=== PATIENT | female | born 1995 | race African-American/Black ===

== ENCOUNTER 2017-05-26 16:03 | Inpatient (IN) | payer OTHER ==
[~2017-05-26] VITALS: Ht 162.6 cm; Wt 56.7 kg
--- NOTE | ~2017-05-26 | PN ---
Unit #: [id number] #: [id number] Patient: ANITA SMILEY [id number] [facility] [address] [place] [address] [id number] MR#: [id number] NAME: ANITA SMILEY ROOM: P122 Age: 22 Sex: F Admission Date: 05/26/2017 : 1995 Attending Physician: Elodia Mcelroy M.D. Admitting Physician: Elodia Mcelroy M.D. Primary Care Physician: Generic Doctor Not In System [facility] PROGRESS NOTES DATE 05/29/2017 DISCUSSION Ms. Smiley is a 22-year-old female who was seen today and chart was reviewed and case was discussed with the staff. She reports persistent depression and anxiety. Meanwhile, she also has been complaining of poor sleep. She has been taking medications and tolerating them fairly well and now she states that she does not want to be on Abilify Maintena which was discussed and that she would rather like to be switched to Seroquel from Abilify. MENTAL STATUS EXAMINATION Young female who was casually dressed with fair personal hygiene and appears to be in no acute distress or discomfort. She was awake and alert with intact orientation. Her mood was anxious with congruent affect. She denies any suicidal or homicidal ideations and also denies any auditory or visual hallucinations. Her insight and judgement remains slightly impaired. TREATMENT PLAN 1. Will continue current medications and treatment protocol. Will monitor her response to medications and make further adjustments as needed. 2. Will continue to follow up. Dictated by... Zainab Romero/tyrese TD: 05/29/2017 16:25 JOB #: [id number] Unit #: [id number] #: [id number] Patient: ANITA SMILEY [facility] PROGRESS NOTES Page 1 of 1 X Elodia Mcelroy MD PROGRESS NOTE
--- NOTE | ~2017-05-26 | DS ---
Unit #: [id number] #: [id number] Patient: [facility] [id number] [facility] [address] [place] [address] [id number] I MR#: [id number] NAME: ANITA SIMMONS ROOM: P176 Age: 22 Sex: F Admission Date: 05/26/2017 : 1995 Discharge Date: 06/01/2017 Attending Physician: Elodia Mcelroy M.D. Primary Care Physician: Generic Doctor Not In System DISCHARGE SUMMARY IDENTIFICATION DATA Mrs. Simmons is a 22-year-old single female who is a resident of [place], [place], and was self-referred to the hospital on a voluntary basis. DISCHARGE DIAGNOSES PSYCHIATRIC: Bipolar disorder, most recent episode, depressed, recurrent, moderate, without psychotic features. Cocaine dependence, moderate. Benzodiazepine dependence, moderate. MEDICAL: History of seizure disorder. STRESSORS: Moderate psychosocial stressors. HISTORY OF PRESENT ILLNESS Same as in initial psychiatric evaluation. PAST PSYCHIATRIC HISTORY Same as in initial psychiatric evaluation. PAST MEDICAL HISTORY Same as in initial psychiatric evaluation. HOSPITAL COURSE The patient was admitted to the adult chemical dependence and psychiatric unit at [facility] baltazar Akhtar and was oriented to the hospital environment. Routine p.r.n. medications were initiated, and she was started back on home medications and initially was started on Abilify with a plan to start her on a long-acting injectable Abilify. However, she stated that she does not want to take Abilify and that would like to go home on Seroquel which was initiated, and then she decided that she does not want to be on Depakote either and was seen to be exhibiting rather manipulative behavior. However, no agitation or aggression was noted (1) __ she was taking Seroquel and tolerating it fairly well and was able to show a decent therapeutic response and improvement in depression and anxiety, and as such it was decided that she will be discharged home. We will continue treatment on outpatient basis. DISCHARGE MEDICATIONS 1. Seroquel 100 mg at bedtime for bipolar. 2. BuSpar 10 mg 3 times a day for anxiety. CONDITION AT DISCHARGE Stable. Unit #: [id number] #: [id number] Patient: ANITA SIMMONS PROGNOSIS Fair. Dictated by... Zainab Romero/chandan TD: 06/02/2017 10:20 JOB #: [id number] DISCHARGE SUMMARY Page 1 of 1 X Elodia Mcelroy MD DISCHARGE SUMMARY
--- NOTE | ~2017-05-26 | HP ---
Unit #: [id number] #: [id number] Patient: ANITA SMILEY [id number] [place] [address] [id number] I MR#: [id number] NAME: ANITA SMILEY ROOM: P122 Age: 22 Sex: F Admission Date: 05/26/2017 : 1995 Attending Physician: Elodia Mcelroy M.D. Admitting Physician: Elodia Mcelroy M.D. Primary Care Physician: Maribel Doctor Not In System HISTORY AND PHYSICAL HISTORY OF PRESENT ILLNESS Anita is a 22 year old admitted to [address] [place] [address] with depression and verbalizing wanting to hurt herself. She has had other admissions to this facility for the same. PAST MEDICAL HISTORY History of illicit substance abuse to include benzodiazepines and cocaine. PAST SURGICAL HISTORY Nothing reported. ALLERGIES No known drug allergies. SOCIAL HISTORY She does not smoke. Drinks alcohol rarely. Admits to abusing benzodiazepines and using cocaine on occasion. FAMILY HISTORY Medically noncontributory. REVIEW OF SYSTEMS CONSTITUTIONAL: No fever or chills. HEENT: Denies any sore throat, ear pain or runny nose. CARDIOVASCULAR: Denies chest pain, irregular heart rhythm or palpitations. CHEST: Denies shortness of breath or cough. No hemoptysis. GASTROINTESTINAL: Denies nausea, vomiting, diarrhea or chronic constipation. ENDOCRINE: Denies history of increased thirst or urination. No recent significant weight loss or gain. GENITOURINARY: Denies dysuria, frequency, or hematuria. SKIN: Denies any rashes. HEMATOLOGIC: Denies history of increased bleeding or bruising. MUSCULOSKELETAL: Denies any hot, swollen joints. No generalized muscle pain. NEUROLOGIC: Denies problems with vision or speech. No frequent, severe headaches. No numbness, tingling or weakness in any extremities. Denies loss of bladder or bowel control. CURRENT MEDICATIONS 1. Abilify 400 mg IM q. 30 days. 2. BuSpar 10 mg t.i.d. 3. Depakote 500 mg b.i.d. Unit #: [id number] #: [id number] Patient: ANITA SMILEY 4. Abilify p.o. 5 mg b.i.d. 5. Vistaril p.r.n. 6. Desyrel p.r.n. 7. Milk of Magnesia p.r.n. 8. Maalox p.r.n. 9. Tylenol p.r.n. PHYSICAL EXAMINATION GENERAL: Alert, well-nourished, in no apparent distress. VITAL SIGNS: Blood pressure 120/80, heart rate 80, respirations 16, temperature 98.6. WEIGHT: 125. HEIGHT: 5 feet 4 inches. SKIN: Warm and dry without rash or lesion. HEENT: Normocephalic. TMs not viewed. Oral and nasal passages clear. Conjunctivae clear. PERRLA. EOMs intact. NECK: Supple without lymphadenopathy or thyromegaly. HEART: Regular rate and rhythm without murmur. LUNGS: Clear. ABDOMEN: Soft, nontender. : Not done. EXTREMITIES: No evidence of cyanosis, clubbing or edema. Moves all without focal deficit. NEUROLOGICAL: Unable to complete extended exam. She does move all extremities without focal deficit. Hand director it is equal and gait is normal. IMPRESSION Psychiatric admission. RECOMMENDATIONS PSYCHIATRIC: Per psychiatrist. MEDICAL: See no contraindication to participate in facility's activities. MEDICAL PROGNOSIS Good. MEDICAL CONDITION Stable. Dictated by... Kristine Morelos P.A.-C. for Zainab Mcpherson/tyrese TD: 05/27/2017 17:56 JOB #: [id number] Unit #: [id number] #: [id number] Patient: ANITA SMILEY HISTORY AND PHYSICAL Page 1 of 1 X Kristine Morelos X HISTORY AND PHYSICAL
--- NOTE | ~2017-05-26 | PN ---
Unit #: [id number] #: [id number] Patient: ANITA SMILEY [id number] [facility] [address] [place] [address] [id number] I MR#: [id number] NAME: ANITA SMILEY ROOM: P122 Age: 22 Sex: F Admission Date: 05/26/2017 : 1995 Attending Physician: Elodia Mcelroy M.D. Admitting Physician: Elodia Mcelroy M.D. Primary Care Physician: Generic Doctor Not In System [facility] PROGRESS NOTES DATE OF SERVICE 05/28/2017 DISCUSSION Ms. Smiley is a 22-year-old female who was seen today. Chart was reviewed and case was discussed with the staff. She has been anxious, withdrawn, and rather seclusive to herself. Meanwhile, she has been cooperative with treatment recommendations and has been taking the medications and tolerating them fairly well with no reported side effects. MENTAL STATUS EXAMINATION Young female who is casually dressed with fair personal hygiene, appears to be in no acute distress or discomfort. The patient was awake and alert on interaction with intact orientation. Her mood is anxious with congruent affect. Her speech is slow and goal-directed. She denies any suicidal or homicidal ideation and also denies any auditory or visual hallucinations. Her insight and judgment remain slightly impaired. TREATMENT PLAN 1. We will continue her on her current medications and treatment protocol. We will monitor her response to the medications and make further adjustments as needed. 2. We will continue to follow up. Dictated by... Zainab Romero/chandan TD: 05/28/2017 11:32 JOB #: [id number] Unit #: [id number] #: [id number] Patient: ANITA SMILEY PROGRESS NOTES Page 1 of 1 X Elodia Mcelroy MD PROGRESS NOTE
--- NOTE | ~2017-05-26 | CO ---
Unit #: [id number] #: [id number] Patient: ANITA SMILEY [id number] [facility] [address] [place] [address] [id number] MR#: [id number] NAME: ANITA SMILEY ROOM: 76 Age: 22 Sex: F Admission Date: 05/26/2017 : 1995 Attending Physician: Elodia Mcelroy M.D. Primary Care Physician: Generic Doctor Not In System Consultation Date: 05/30/2017 CONSULTATION REPORT ORDERING PROVIDER Dr. Mcelroy. REASON FOR CONSULTATION STD check. SUBJECTIVE The patient reports that she was tested for STDs back in February. She never heard back from her provider, so she assumed that the tests were negative. However, her boyfriend was just diagnosed this week with Trichomonas gonorrhea and chlamydia. She reports that she has had intercourse since February with him. She denies any dysuria or vaginal bleeding, but does report thick yellow discharge with an odor and positive abdominal and back pain. OBJECTIVE Vaginal examination was deferred at this time. Her vital signs are stable. ASSESSMENT Exposure to STDs. PLAN Plan is to go ahead and test the patient for gonorrhea and chlamydia after urine testing. We will go ahead and treat with Rocephin, azithromycin, and Flagyl. Dictated by... Gracie Mitchell/navya TD: 05/31/2017 03:31 JOB #: [id number] Unit #: [id number] #: [id number] Patient: ANITA SMILEY CONSULTATION REPORT Page 1 of 1 X JIM ARDON APRN X CONSULTATION REPORT
--- NOTE | ~2017-05-26 | PN ---
Unit #: [id number] #: [id number] Patient: ANITA SMILEY [id number] [facility] [address] [place] [address] [id number] I MR#: [id number] NAME: ANITA SMILEY ROOM: 76 Age: 22 Sex: F Admission Date: 05/26/2017 : 1995 Attending Physician: Elodia Mcelroy M.D. Admitting Physician: Elodia Mcelroy M.D. Primary Care Physician: Generic Doctor Not In System [facility] PROGRESS NOTES DATE May 30, 2017 DISCUSSION Ms. Smiley is a 22-year-old female, who was seen today and chart was reviewed and the case was discussed with the staff. The patient has been anxious, withdrawn, and rather seclusive to herself and has been cooperative with treatment recommendations and recently was placed on Seroquel. Meanwhile, she has been coming to therapy groups and has been participating. MENTAL STATUS EXAMINATION Young female, who was casually dressed with fair personal hygiene and appears to be in no acute distress or discomfort. The patient was awake and alert on interaction with intact orientation. Her mood is anxious with a congruent affect. The patient denies any suicidal or homicidal ideations. Her insight and judgment remain slightly impaired. TREATMENT PLAN 1. We will continue her on her current medications and treatment protocol, and will monitor her response to the medications, and make further adjustments as needed. 2. We will continue to followup. Dictated by... Zainab Romero/haroldo TD: 06/01/2017 09:47 JOB #: [id number] Unit #: [id number] #: [id number] Patient: ANITA SMILEY PROGRESS NOTES Page 1 of 1 X Elodia Mcelroy MD PROGRESS NOTE
--- NOTE | ~2017-05-26 | PA ---
Unit #: [id number] #: [id number] Patient: AN[facility] SMILEY [id number] [facility] [address] [place] [address] [id number] MR#: [id number] NAME: ANITA SMILEY ROOM: P122 Age: 22 Sex: F Admission Date: 05/26/2017 : 1995 Date of Assessment: 05/27/2017 Attending Physician: Elodia Mcelroy M.D. Admitting Physician: Elodia Mcelroy M.D. Primary Care Physician: Generic Doctor Not In System PSYCHIATRIC ASSESSMENT DATE OF SERVICE 05/27/2017. IDENTIFYING DATA Ms. Smiley is a 22-year-old single female, who is a resident of [place], [place], and was self-referred to the hospital on a voluntary basis. CHIEF COMPLAINT "I feel like I'm losing myself." HISTORY OF PRESENT ILLNESS Ms. Smiley is a 22-year-old female, who was brought to the hospital stating that she has been in a lot of stress and "the other day, I took a lot of Xanax and coke and I hoped I would not wake up, but I did and I called my friend and he brought me up here. I have not been on my medication since August and I was taking BuSpar, Abilify, and some others." The patient was seen to be tearful during evaluation and reported increasing depression, "I'm just all over the place right now and I have had these feelings my whole life. It seems like I have tried to kill myself before too, but as I have gotten cleared, I tried to feel when these situations are coming up, I just really needs some help." She does report increasing depression, anxiety, irritability, restlessness, feelings of hopelessness and helplessness, and suicidal ideations and as such, recommendation for inpatient level of care for safety and stabilization was made. The patient was stepped up to the inpatient unit. SUBSTANCE ABUSE HISTORY The patient reports history of cannabis, cocaine, and benzodiazepine abuse, with the last use a couple of days ago. PAST PSYCHIATRIC HISTORY The patient has had history of psychiatric treatment in the past and has been to [facility] at [facility], with ongoing outpatient treatment through [facility], but currently she is not active in treatment program, and is not seeing a psychiatrist, and has been off her medications and as such, has been decompensating. PAST MEDICAL HISTORY Significant for seizure disorder. ALLERGIES No known medication allergies. Unit #: [id number] #: [id number] Patient: ANITA SMILEY PERSONAL AND SOCIAL HISTORY A 22-year-old female, who reports that she is single, unemployed, and lives with her sister and has poor social support system. MENTAL STATUS EXAMINATION Young female who was casually dressed with fair personal hygiene, appears to be in no acute distress or discomfort. She was awake and alert on interaction with intact orientation to time, place, and person. Her mood was anxious and depressed with a congruent affect. Her speech was slow and restricted in content. Her thought processes were disorganized with some looseness of associations and flight of ideas. Her insight and judgment remain significantly impaired. DIAGNOSTIC IMPRESSION Psychiatric: Bipolar disorder, most recent episode depressed, recurrent, moderate, without psychotic features; cocaine abuse, moderate; benzodiazepine abuse, moderate. Medical: History of seizure disorders. Stressors: Moderate psychosocial stressors. TREATMENT PLAN 1. The patient has presented with history of mood disorder, and has been decompensating primarily due to poor compliance with medications and we will recommend inpatient hospitalization for safety and stabilization. We will start her back on her home medications including her Abilify and we will also consider her to be a candidate for long-acting monthly Abilify due to history of poor compliance with treatment and therapeutic response to Abilify when taking it. 2. Supportive therapy was provided to the patient. ESTIMATED LENGTH OF STAY 5 to 7 days. ABILITY TO HELP SELF Limited. WILLINGNESS TO HELP SELF The patient appears to be willing to help self. STRENGTHS 1. Communicative. 2. Cooperative. PROBLEMS 1. Chronic dysphoric symptoms. 2. Poor social support system. DISCHARGE CRITERIA This will be contingent upon the patient's ability to show resolution of her depression and anxiety and her ability to stay safe to herself, particularly after discharge from the hospital. Dictated by... Elodia Mcelroy M.D. IAA/modl Unit #: [id number] #: [id number] Patient: ANITA SMILEY TD: 05/27/2017 07:39 JOB #: [id number] PSYCHIATRIC ASSESSMENT Page 1 of 1 X Elodia Mcelroy MD PSYCHIATRIC ASSESSMENT
--- NOTE | ~2017-05-26 | PN ---
Unit #: [id number] #: [id number] Patient: ANITA SMILEY [id number] [facility] [address] [place] [address] [id number] I MR#: [id number] NAME: ANITA SMILEY ROOM: P176 Age: 22 Sex: F Admission Date: 05/26/2017 : 1995 Attending Physician: Elodia Mcelroy M.D. Admitting Physician: Elodia Mcelroy M.D. Primary Care Physician: Generic Doctor Not In System [facility] PROGRESS NOTES DATE OF SERVICE: 05/31/2017 SUBJECTIVE Ms. Smiley is a 22-year-old female, who was seen today and chart was reviewed, and case was discussed with the staff. She has been anxious, withdrawn, and rather seclusive to herself. Meanwhile, she has been cooperative with treatment recommendations and has been taking medications and tolerating them fairly well with no reported side effects. MENTAL STATUS EXAMINATION Young female who was casually dressed with fair personal hygiene, appears to be in no acute distress or discomfort. She was awake and alert on interaction with intact orientation. Her mood was anxious with a congruent affect. Her speech was slow and goal directed. She denies any suicidal or homicidal ideations and also denies any auditory or visual hallucinations. Her insight and judgment remain slightly impaired. TREATMENT PLAN 1. We will continue on current medications and treatment protocol. We will monitor her response to medications and make further adjustments as needed. 2. We will continue to follow up. Dictated by... Zainab Romero/navya TD: 06/01/2017 22:55 JOB #: [id number] [facility] PROGRESS NOTES Page 1 of 1 X Elodia Mcelroy MD PROGRESS NOTE
[~2017-05-26 16:03] MED LIST: ABILIFY PO; CELEXA PO; [UNRECOGNIZED DRUG - REMARK]
[2017-05-27 09:45] LABS: BASOPHIL% 0.5 % (0-2.5); EOSINOPHIL# 0.1 X10e3 (0-0.7); EOSINOPHIL% 1.2 % (0.0-7.0); HEMATOCRIT 38.5 % (35.0-45.0); HEMOGLOBIN 12.7 gm/dL (12.0-16.0); LYMPHOCYTE# 2.9 X10e3 (1.0-3.5); LYMPHOCYTE% 36.2 % (17.0-45.0); MEAN CORPUSCULAR HEMOGLOBIN 29.4 PG (28-34); MONOCYTE# 0.6 X10e3 (0-1.0); MONOCYTE% 8.1 % (3.0-12.0); NEUTROPHIL# 4.3 X10e3 (1.5-7.1); PLATELET COUNT 264 X10e3 (140-420); RED BLOOD COUNT 4.32 X10e (3.90-5.30); RED CELL DISTRIBUTION WIDTH 14.2 % (11.0-15.5); WHITE BLOOD COUNT 7.9 X10e3 (4.0-10.5)
[2017-05-27 09:47] LABS: DIFF IND NO
[2017-05-27 10:14] LABS: ALBUMIN SERUM 4.1 g/dL (3.5-5.0); BILIRUBIN,TOTAL 0.8 mg/dL (0.2-2.0); BUN/CREATININE RATIO 12.72; CALCIUM SERUM 9.3 mg/dL (8.4-10.2); CREATININE SERUM 1.1 mg/dL (0.6-1.4); GLOM FILT RATE Estimated 81.4 mL/min (>60); POTASSIUM 4.1 mmol/L (3.5-5.1); PROTEIN TOTAL SERUM 6.4 g/dL (6.0-8.3)
[2017-05-31 14:32] LABS: URINE APPEARANCE CLOUDY; URINE BILIRUBIN NEG (NEG); URINE BLOOD NEG (NEG); URINE COLOR YELLOW; URINE GLUCOSE NEG (NEG); URINE KETONE TRACE (NEG); URINE LEUKOCYTE ESTERASE NEG (NEG); URINE NITRATE NEG (NEG); URINE PH 8.5 (5-8); URINE PROTEIN NEG (NEG); URINE SPECIFIC GRAVITY 1.018 (1.003-1.035); URINE UROBILINOGEN 0.2 MG/DL (NEG)
[2017-05-31 14:47] LABS: AMPHETAMINE NEG (NEG); BARBITURATES NEG (NEG); BENZODIAZEPINES NEG (NEG); COCAINE NEG (NEG); MARIJUANA POS (NEG); OPIATES NEG (NEG); TRICYCLIC ANTIDEPRESSANTS NEG (NEG); U METHADONE NEG (NEG)
== END 2017-06-01 09:55 | DRG 885 ==
LOC: P1S 19:35 → P1E 05-29 21:50
PROVIDERS: Psychiatry & Neurology Psychiatry
DX: F31.32 Bipolar disorder, current episode depressed, moderate (principal); F13.20 Sedative, hypnotic or anxiolytic dependence, uncomplicated; R45.851 Suicidal ideations; F12.20 Cannabis dependence, uncomplicated; Z20.2 Contact with and (suspected) exposure to infections with a predominantly sexual mode of transmission; G40.909 Epilepsy, unspecified, not intractable, without status epilepticus
CPT/HCPCS: 80053; 80307; 81003; 84703; 85025; J0696